=== PATIENT | female | born 1960 | race African-American/Black ===

== ENCOUNTER 2016-11-16 17:56 | Emergency (ER) | payer MEDICAID ==
[~2016-11-16] VITALS: Ht 165.1 cm; Wt 63.5 kg
[~2016-11-16 17:56] MED LIST: SYNTHROID125 MCG ORAL; TRAMADOL HCL50 MG ORAL
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
[2016-11-16] MEDS ORDERED: fentaNYL 100 mcg/2 mL IV ONE (18:30)
[2016-11-16] MEDS ORDERED: Ketorolac 30mg Inj IV ONE (18:30)
[2016-11-16 18:50] LABS: KETONES,URINE NEGATIVE (NEGATIVE); LEUKOCYTE ESTERASE ,URINE 1+ (NEGATIVE); NITRITE,URINE NEGATIVE (NEGATIVE); PH,URINE 5 (4.5-8.0); PROTEIN,URINE 2+ (NEGATIVE); UROBILINOGEN,URINE NORMAL MG/DL (0.0-1.0)
[2016-11-16 18:58] LABS: APPEARANCE,URINE SLIGHTLY CLOUDY
[2016-11-16 19:00] LABS: BASOPHILS % (AUTO) 0.9 % (0.0-2.0); LYMPHOCYTES % (AUTO) 34.1 % (20.0-45.0); MEAN CORPUSCULAR HEMOGLOBIN 33.1 PG (27.0-31.0); MEAN CORPUSCULAR HGB CONC 33.8 G/DL (32.0-36.0); MEAN CORPUSCULAR VOLUME 98 FL (80-99); MEAN PLATELET VOLUME 5.3 FL (6.5-10.1); MONOCYTES % (AUTO) 7.5 % (1.0-10.0); NEUTROPHILS % (AUTO) 55.5 % (45.0-75.0); PLATELET COUNT 187 K/UL (150-450); RED BLOOD COUNT 4.02 M/UL (4.20-5.40); WHITE BLOOD COUNT 7.5 K/UL (4.8-10.8)
[2016-11-16 19:03] LABS: BACTERIA,URINE FEW /HPF; SQUAMOUS EPITHELIAL CELL,UR MANY /LPF (NONE/OCC)
[2016-11-16 19:18] LABS: ALANINE AMINOTRANSFERASE 46 U/L (3-33); ALBUMIN/GLOBULIN RATIO 1.7 (1.0-2.7); ANION GAP 12 (5-15); ASPARTATE AMINO TRANSFERASE 64 U/L (5-40); CARBON DIOXIDE 26 mEQ/L (20-30); CHLORIDE 98 mEQ/L (98-107); CREATININE 1.1 mg/dL (0.5-0.9); GLOMERULAR FILTRATION RATE > 60 mL/min (>60); HEMOLYSIS 8; POTASSIUM 3.9 mEQ/L (3.4-4.9); SODIUM 136 mEQ/L (135-145); TOTAL PROTEIN 7.6 g/dL (6.6-8.7)
[2016-11-16] MEDS ORDERED: Morphine Sulfate 4mg/ml Inj IVP ONE (20:15)
[2016-11-16] MEDS ORDERED: TRAMADOL HCL50 MG ORAL (21:10)
[2016-11-16] MEDS ORDERED: ROBAXIN500 MG PO (21:10)
[2016-11-16] MEDS ORDERED: IBUPROFEN600 MG ORAL (21:10)
[2016-11-16] MEDS ORDERED: ACETAMINOPHEN-1 EAC1 ORAL (21:20)
[2016-11-16 21:34] VITALS: BP 148/88
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
== END 2016-11-16 21:36 | disposition home or self-care (01) ==
LOC: EMR 18:20
DX: S20.211A Contusion of right front wall of thorax, initial encounter (principal); S13.4XXA Sprain of ligaments of cervical spine, initial encounter; S30.1XXA Contusion of abdominal wall, initial encounter; S60.211A Contusion of right wrist, initial encounter; V43.52XA Car driver injured in collision with other type car in traffic accident, initial encounter; Y93.9 Activity, unspecified; Y92.410 Unspecified street and highway as the place of occurrence of the external cause; J44.9 Chronic obstructive pulmonary disease, unspecified; F17.200 Nicotine dependence, unspecified, uncomplicated; M47.892 Other spondylosis, cervical region; J98.4 Other disorders of lung; N28.1 Cyst of kidney, acquired
CPT/HCPCS: 29280; 36415; 71260; 72125; 74177; 80053; 81003; 85025; 96374; 96375; 99284; J1885; J2270; J2405; J3010; Q9967